=== PATIENT | female | born 1970 | race Caucasian/White ===

== ENCOUNTER 2021-02-24 14:21 | Inpatient (IN) | payer MEDICARE ==
[~2021-02-24] VITALS: Ht 157.5 cm; Wt 142.3 kg
[~2021-02-24 14:21] MED LIST: ALBU2.5V8; ALPR1TAB6; ASPI-482 PO; ATOR40TA59; BUPR100T11; FLUC150T2; FLUT1DIS; GLIM2TAB7; LEVO1TBD5; LEVO200T5; MELO15TA23; METF10007; METH-562; OMEG1CAP27 PO; OXYB5TAB10; OXYC10TA; PANT40TA77; PARO40TA3; [UNRECOGNIZED DRUG - CODE]
--- NOTE | 2021-02-24 14:42 | PHYS DOC ---
Past Medical History Past Medical History: Anxiety, Asthma, Depression, Diabetes-Type II, Hype rthyroid Additional Past Medical Histor: OVER ACTIVEBLADDER,CP Past Surgical History: Other Additional Past Surgical Histo: UNKNOWN Smoking Status: Never Smoker Alcohol Use: None Drug Use: None General Adult EDM: Chief Complaint: HIP PAIN HPI: HPI: Patient is a 50 year old female with history of cerebral palsy, HTN, DM who presents with a mechanical fall. She has right-sided weakness from her CP, and was trying to transfer from her bed to a chair when she fell onto her left knee. She felt a pop and pain immediately in her left hip. Denies head strike, LOC. No headache or confusion following the fall. Denies any neck pain or upper extremity pain, tingling, or weakness. Denies any other areas of pain. Received 75 mcg of intranasal fentanyl, followed by 50 mcg of IV fentanyl prior to arrival. Leg was noted by EMS to be shortened and externally rotated. Last p.o. intake was approximately 1 PM. Fall was approximately 1:30 PM. Review of Systems: Review of Systems: Constitutional: Denies fever or chills. [] Eyes: Denies change in visual acuity. [] HENT: Denies nasal congestion or sore throat. [] Respiratory: Denies cough or shortness of breath. [] Cardiovascular: Denies chest pain or edema. [] GI: Denies abdominal pain, nausea, vomiting, bloody stools or diarrhea. [] : Denies dysuria. [] Musculoskeletal: Reports left hip pain. Denies back pain or joint pain. [] Integument: Denies rash. [] Neurologic: Denies headache, focal weakness or sensory changes. [] Endocrine: Denies polyuria or polydipsia. [] Lymphatic: Denies swollen glands. [] Psychiatric: Denies depression or anxiety. [] Heart Score: C/O Chest Pain: No Risk Factors: Risk Factors: DM, Current or recent (<one month) smoker, HTN, HLP, family history of CAD, obesity. Risk Scores: Score 0 - 3: 2.5% MACE over next 6 weeks - Discharge Home Score 4 - 6: 20.3% MACE over next 6 weeks - Admit for Clinical Observation Score 7 - 10: 72.7% MACE over next 6 weeks - Early Invasive Strategies Current Medications: Current Medications Medications (Trade) Dose Ordered Sig/Amalia Start Time Stop Time Status Last Admin Dose Admin Morphine Sulfate (Morphine Sulfate) 4 mg 1X ONCE 02/24/21 14:45 02/24/21 14:46 UNV Allergies: Allergies: Allergies Coded Allergies Type Severity Reaction Last Updated Verified Beta-Blockers (Beta-Adrenergic Bloc Allergy Intermediate 12/03/14 No Sulfa (Sulfonamide Antibiotics) Allergy Intermediate 12/02/14 No carbamazepine Allergy Intermediate 12/02/14 No pramoxine Allergy Intermediate 12/02/14 No Physical Exam: PE: Constitutional: Well developed, well nourished, no acute distress, non-toxic appearance. [] HENT: Normocephalic, atraumatic, bilateral external ears normal, oropharynx moist, no oral exudates, nose normal. [] Eyes: Conjunctiva normal, no discharge. [] Neck: Normal range of motion, no tenderness, supple, no stridor. [] Cardiovascular:Heart rate regular rhythm, no murmur [] Lungs & Thorax: Bilateral breath sounds clear to auscultation. No chest wall tenderness. [] Abdomen: Obese abdomen. Nontender. [] Skin: Warm, dry, no erythema, no rash. [] Back: No tenderness, no CVA tenderness. [] Extremities: Left hip tenderness over the greater trochanter. Leg is shortened and externally rotated. No evidence of open fracture. DP pulses 2+ bilaterally. Neurologic: Alert and oriented X 3, baseline right-sided weakness normal sensory function, Psychologic: Affect normal, judgement normal, mood normal. [] EKG: EKG: Sinus rhythm. Rate 79. Normal axis. No acute ischemic changes peer [] Radiology/Procedures: Radiology/Procedures: [] Impression: [facility] [address] [place], [place] [id number] IMAGING REPORT Signed PATIENT: TAIWO CERVANTES LACCOUNT: [id number] : 1970 LOCATION: ER AGE: 50 SEX: F EXAM STATUS: REG ER ORD. PHYSICIAN: REJI CHONG MD REASON: FEMUR LEFT PT FELL TRANSFERRING FROM WHEELCHAIR PROCEDURE: HIP LEFT 2V WITH PELVIS XR FEMUR_LEFT, XR BILATERAL HIP (WITH OR WITHOUT PELVIS) LEFT 2 VIEWS History: Left femur pain. Fall. Comparison: None. Technique: AP pelvis. 2 views of the left hip. 4 views the left femur. Findings: Acute intertrochanteric fracture of the left proximal femur with suspected rotational displacement. Femoral acetabular joint remains normally located. Degenerative changes of the bilateral hips. Soft tissue edema at the left hip. Mild degenerative changes of left knee. Moderate left knee effusion. Impression: 1. Acute intertrochanteric fracture of the left hip. 2. Moderate left knee effusion. Electronically signed by: Bryn Daniel MD (02/24/2021 3:48 PM) [id number] DICTATED and SIGNED BY: BRYN DANIEL MD DATE: 02/24/21 [id number] Course & Med Decision Making: Course & Med Decision Making Pertinent Labs and Imaging studies reviewed. (See chart for details) Patient a 50-year-old female with history of cerebral palsy with right-sided weakness who presents with a fall while transferring. Complains of left-sided hip pain. There is evidence of shortening and external rotation on exam. No head or neck injury evident. No blood thinners. Primary/secondary exam pertinent only for left hip findings. We will obtain plain films, basic labs, EKG, Covid for operative planning. Last p.o. approximately 1 PM. 1442 Intertrochanteric hip fracture seen on x-ray. We will discuss admission with orthopedics and hospitalist. 1554 Peggy Disclaimer: Peggy Disclaimer: This electronic medical record was generated, in whole or in part, using a voice recognition dictation system. Departure Departure Impression: Primary Impression: Closed left hip fracture Disposition: ADMITTED INPATIENT Admitting Physician: UZIEL Vickers) Condition: STABLE Referrals: LENARD DOW MD (PCP) REJI CHONG MD Feb 24, 2021 14:42
[2021-02-24] MEDS ORDERED: MORPHINE SULFATE 4 MG/ML INJ. IVP ONE (14:45)
[2021-02-24 14:54] LABS: BASO # 0.1 x10^3/uL (0.0-0.2); BASO % 1 % (0-3); EOS # 0.2 x10^3/uL (0.0-0.7); EOS % 2 % (0-3); HEMATOCRIT 35.2 % (36.0-47.0); HEMOGLOBIN 11.5 g/dL (12.0-15.5); LYMPH # 2.8 x10^3/uL (1.0-4.8); LYMPH % 27 % (24-48); MEAN CORPUSCULAR HEMOGLOBIN 27 pg (25-35); MEAN CORPUSCULAR HGB CONC 33 g/dL (31-37); MEAN CORPUSCULAR VOLUME 84 fL (79-100); MONO # 0.5 x10^3/uL (0.0-1.1); MONO % 5 % (0-9); NEUT # 6.6 x10^3/uL (1.8-7.7); NEUT % 65 % (31-73); PLATELET COUNT 358 x10^3/uL (140-400); RED BLOOD COUNT 4.22 x10^6/uL (3.50-5.40); RED CELL DISTRIBUTION WIDTH 18.3 % (11.5-14.5); WHITE BLOOD COUNT 10.2 x10^3/uL (4.0-11.0)
[2021-02-24 14:56] LABS: CALCIUM 9.1 mg/dL (8.5-10.1); CREATININE 0.6 mg/dL (0.6-1.0); GFR 105.4; POTASSIUM 3.7 mmol/L (3.5-5.1)
--- NOTE | 2021-02-24 15:47 | EKG ---
[facility] [address] [place] [address] Test Date: 2021-02-24 Test Time: 14:53:52 Pat Name: TAIWO CERVANTES Department: Room: Gender: F Assistant Branch Operations Manager: : 1970 Requested By: REJI CHONG Order Number: [id number] Reading MD: Measurements Intervals [place] Rate: 79 P: 0 NM: 196 QRS: 24 QRSD: 84 T: 28 QT: 390 QTc: 448 Interpretive Statements SINUS RHYTHM OTHERWISE NORMAL ECG RI6.02 No previous ECG available for comparison
--- NOTE | 2021-02-24 15:51 | RAD ---
XR FEMUR_LEFT, XR BILATERAL HIP (WITH OR WITHOUT PELVIS) LEFT 2 VIEWS History: Left femur pain. Fall. Comparison: None. Technique: AP pelvis. 2 views of the left hip. 4 views the left femur. Findings: Acute intertrochanteric fracture of the left proximal femur with suspected rotational displacement. F emoral acetabular joint remains normally located. Degenerative changes of the bilateral hips. Soft ti ssue edema at the left hip. Mild degenerative changes of left knee. Moderate left knee effusion. Impression: 1. Acute intertrochanteric fracture of the left hip. 2. Moderate left knee effusion. Electronically signed by: Bryn Huff MD (02/24/2021 3:48 PM) [id number]
[2021-02-24] MEDS: MORPHINE SULFATE 4 MG/ML INJ. IVP PRN ×4 (17:23→23:52)
[2021-02-24 19:10] VITALS: BP 141/97
--- NOTE | 2021-02-24 20:18 | NUR ---
Patient admitted in ER Hold with diagnosis of Patient admitted in ER Holding. Admitting diagnosis: Left hip fracture. Patient states she fell today trying to get into her wheelchair. Patient is alert and oriented x 4. Patient has cerebral palsy and uses a wheelchair. X-rays confirmed fracture. Surgery is scheduled for 02/25/21. Patient is moderate amount of pain with movement. Will continue to monitor.
[2021-02-24] MEDS ORDERED: ALBU2.5V8 IH (20:51)
[2021-02-24] MEDS ORDERED: METH-561 PO (20:51)
--- NOTE | 2021-02-24 21:34 | PDOC ---
PROGRESS NOTES Date of Service DATE: 02/24/21 TIME: 21:32 Subjective Subjective Problems overnight: Orthopedic consult dictated 02/24/2021 #[id number] Objective Vital Signs Vital Signs Date Time Temp Pulse Resp B/P (MAP) Pulse Ox O2 Delivery O2 Flow Rate FiO2 02/24/21 20:15 18 Room Air 02/24/21 17:27 86 126/81 (96) 94 02/24/21 14:25 98.6 98.6 Labs Laboratory Tests Test 02/24/21 14:35 02/24/21 14:56 White Blood Count 10.2 x10^3/uL (4.0-11.0) Red Blood Count 4.22 x10^6/uL (3.50-5.40) Hemoglobin 11.5 g/dL (12.0-15.5) Hematocrit 35.2 % (36.0-47.0) Mean Corpuscular Volume 84 fL (79-100) Mean Corpuscular Hemoglobin 27 pg (25-35) Mean Corpuscular Hemoglobin Concent 33 g/dL (31-37) Red Cell Distribution Width 18.3 % (11.5-14.5) Platelet Count 358 x10^3/uL (140-400) Neutrophils (%) (Auto) 65 % (31-73) Lymphocytes (%) (Auto) 27 % (24-48) Monocytes (%) (Auto) 5 % (0-9) Eosinophils (%) (Auto) 2 % (0-3) Basophils (%) (Auto) 1 % (0-3) Neutrophils # (Auto) 6.6 x10^3/uL (1.8-7.7) Lymphocytes # (Auto) 2.8 x10^3/uL (1.0-4.8) Monocytes # (Auto) 0.5 x10^3/uL (0.0-1.1) Eosinophils # (Auto) 0.2 x10^3/uL (0.0-0.7) Basophils # (Auto) 0.1 x10^3/uL (0.0-0.2) Sodium Level 142 mmol/L (136-145) Potassium Level 3.7 mmol/L (3.5-5.1) Chloride Level 104 mmol/L (98-107) Carbon Dioxide Level 28 mmol/L (21-32) Anion Gap 10 (6-14) Blood Urea Nitrogen 15 mg/dL (7-20) Creatinine 0.6 mg/dL (0.6-1.0) Estimated GFR (Cockcroft-Gault) 105.4 Glucose Level 147 mg/dL (70-99) Calcium Level 9.1 mg/dL (8.5-10.1) SARS-CoV-2 Antigen (Rapid) Negative (NEGATIVE) Laboratory Tests Test 02/24/21 14:35 02/24/21 14:56 White Blood Count 10.2 x10^3/uL (4.0-11.0) Red Blood Count 4.22 x10^6/uL (3.50-5.40) Hemoglobin 11.5 g/dL (12.0-15.5) Hematocrit 35.2 % (36.0-47.0) Mean Corpuscular Volume 84 fL (79-100) Mean Corpuscular Hemoglobin 27 pg (25-35) Mean Corpuscular Hemoglobin Concent 33 g/dL (31-37) Red Cell Distribution Width 18.3 % (11.5-14.5) Platelet Count 358 x10^3/uL (140-400) Neutrophils (%) (Auto) 65 % (31-73) Lymphocytes (%) (Auto) 27 % (24-48) Monocytes (%) (Auto) 5 % (0-9) Eosinophils (%) (Auto) 2 % (0-3) Basophils (%) (Auto) 1 % (0-3) Neutrophils # (Auto) 6.6 x10^3/uL (1.8-7.7) Lymphocytes # (Auto) 2.8 x10^3/uL (1.0-4.8) Monocytes # (Auto) 0.5 x10^3/uL (0.0-1.1) Eosinophils # (Auto) 0.2 x10^3/uL (0.0-0.7) Basophils # (Auto) 0.1 x10^3/uL (0.0-0.2) Sodium Level 142 mmol/L (136-145) Potassium Level 3.7 mmol/L (3.5-5.1) Chloride Level 104 mmol/L (98-107) Carbon Dioxide Level 28 mmol/L (21-32) Anion Gap 10 (6-14) Blood Urea Nitrogen 15 mg/dL (7-20) Creatinine 0.6 mg/dL (0.6-1.0) Estimated GFR (Cockcroft-Gault) 105.4 Glucose Level 147 mg/dL (70-99) Calcium Level 9.1 mg/dL (8.5-10.1) SARS-CoV-2 Antigen (Rapid) Negative (NEGATIVE) Assessment Assessment POD# Plan Plan of Care Plan ORIF of left intertrochanteric hip fracture tomorrow following hospitalist evaluation Justicifation of Admission Dx: Justifications for Admission: Justification of Admission Dx: N/A NORBERTO FUENTES MD Feb 24, 2021 21:34
[2021-02-24] MEDS ORDERED: ALPR1TAB2 PO (21:39)
[2021-02-24] MEDS ORDERED: CARV6.2511 PO (21:39)
[2021-02-24] MEDS ORDERED: RIZA10TA PO (21:39)
[2021-02-24] MEDS ORDERED: OXYB5TAB10 PO (21:39)
[2021-02-24] MEDS ORDERED: BUPR100T8 PO (21:39)
[2021-02-24] MEDS ORDERED: NYST15CR TP (21:39)
[2021-02-24] MEDS ORDERED: NYST15PO9 TP (21:39)
[2021-02-24] MEDS ORDERED: ROPI2TAB10 PO (21:39)
[2021-02-24] MEDS ORDERED: PANT20TA2 PO (21:39)
[2021-02-24] MEDS ORDERED: GLIM4TAB8 PO (21:39)
[2021-02-24] MEDS ORDERED: PIOG30TA41 PO (21:39)
[2021-02-24] MEDS ORDERED: METF10007 PO ×2 (21:39)
[2021-02-24] MEDS ORDERED: PARO40TA3 PO (21:39)
[2021-02-24] MEDS ORDERED: MELO15TA23 PO (21:39)
[2021-02-24] MEDS ORDERED: ATOR40TA59 PO (21:39)
[2021-02-24] MEDS ORDERED: DILT240C33 PO (21:39)
[2021-02-24] MEDS ORDERED: LEVO125T5 PO (21:39)
[2021-02-24 23:00] VITALS: BP 140/95
[2021-02-25] VITALS (10 sets, daily range): BP systolic 118–150; BP diastolic 76–96
[2021-02-25] MEDS: MORPHINE SULFATE 4 MG/ML INJ. IVP PRN ×5 (02:12→11:43)
--- NOTE | 2021-02-25 06:05 | CONS ---
DATE OF CONSULTATION: 02/24/2021 EMERGENCY DEPARTMENT CONSULTATION REQUESTING PHYSICIAN: [facility]. REASON FOR CONSULTATION: Left hip fracture. HISTORY OF PRESENT ILLNESS: The patient is a 50-year-old female who has a history of cerebral palsy and chronic right-sided weakness that normally transfers to a wheelchair using her left leg to bear the majority of her weight due to the baseline weakness and unfortunately sustained a fall when she was trying to transfer from bed to chair and fell on her left side. She had immediate onset of pain in the left hip area, inability to bear weight and was brought in by EMS to [facility]. PAST MEDICAL HISTORY: Significant for cerebral palsy, type 2 diabetes, asthma, hyperthyroidism, anxiety, depression and bladder problems. PAST SURGICAL HISTORY: No surgical history. SOCIAL HISTORY: She has an aunt who is her only living relative. She does, however have help transferring and a service dog. Denies smoking, alcohol or drug use. MEDICATIONS: List is reviewed. ALLERGIES: SHE LISTS ALLERGIES TO SULFA DRUGS, CARBAMAZEPINE, PRAMOXINE AND BETA BLOCKERS. REVIEW OF SYSTEMS: Denies any loss of consciousness, head injury, visual changes and aside from her baseline right-sided weakness due to her CP, no new focal weakness, numbness or tingling. No neck or back pain. No chest pain, shortness of breath. PHYSICAL EXAMINATION: She has obvious deformity, shortening, internal rotation of the left lower extremity, pain on any motion at all of the left hip or palpation. Normal examination of the right hip. Normal alignment, stability, bilateral knees and ankles. Again, baseline right-sided weakness. DIAGNOSTIC DATA: X-rays show a displaced intertrochanteric left hip fracture with no degenerative changes at the hip. IMPRESSION: Left intertrochanteric hip fracture. TREATMENT PLAN: I went over with her the significance of the fracture and the recommended operative treatment and stabilization, particularly as she is very dependent on the left side due to her right-sided weakness. We did talk about the possibility of limited weightbearing until healing and showing the possibility of infection, nonhealing, nerve or blood vessel damage, medical or other anesthetic complications among others. All her questions were answered. She does want to proceed with surgical evaluation and treatment, which will occur likely tomorrow following hospitalist evaluation and admission. TINO/BERTO/KIMANI DR: Rashi TID: [id number]
--- NOTE | 2021-02-25 09:28 | HP ---
ADMIT DATE: 02/25/2021 CHIEF COMPLAINT: Fall and hip pain. HISTORY OF PRESENT ILLNESS: The patient is a pleasant 50-year-old female who has cerebral palsy. She fell. She complains of hip pain. She presented via ambulance. We did some imaging. She does have a left intertrochanteric femur fracture. Discussed the case with ER physician. We are going to admit the patient and consult Orthopedics. She is going to surgery this morning. PAST MEDICAL HISTORY: Cerebral palsy, asthma, anxiety, depression, diabetes, hyperthyroidism, overactive bladder. ALLERGIES: BETA BLOCKERS, SULFA, CARBAMAZEPINE. FAMILY HISTORY: Diabetes. SOCIAL HISTORY: She does not drink, smoke or take drugs. MEDICATIONS: Reviewed. Please refer to the MRAD. REVIEW OF SYSTEMS: GENERAL: No history of weight change, weakness or fevers. SKIN: No bruising, hair changes or rashes. EYES: No blurred, double or loss of vision. NOSE AND THROAT: No history of nosebleeds, hoarseness or sore throat. HEART: No history of palpitations, chest pain or shortness of breath on exertion. LUNGS: Denies cough, hemoptysis, wheezing or shortness of breath. GASTROINTESTINAL: Denies changes in appetite, nausea, vomiting, diarrhea or constipation. GENITOURINARY: No history of frequency, urgency, hesitancy or nocturia. NEUROLOGIC: Denies history of numbness, tingling, tremor or weakness. PSYCHIATRIC: No history of panic, anxiety or depression. ENDOCRINE: No history of heat or cold intolerance, polyuria or polydipsia. EXTREMITIES: She complains of left hip pain. PHYSICAL EXAMINATION: VITALS: Within normal limits and are stable. GENERAL: No apparent distress. alert and oriented. HEENT: Normal cephalic atraumatic, external auditory canals are patent. EYES: Extraocular muscles are intact, pupils are equally round and reactive to light and accommodation. MUSCULOSKELETAL: Well developed, well nourished, good range of motion. ENDOCRINE: No thyromegaly was palpated. LYMPHATICS: No cervical chain or axillary nodes were noted. HEMATOPOIETIC: No bruising. NECK: Supple, no JVD, no thyromegaly was noted. LUNGS: Clear to auscultation in all lung chang without rhonchi or wheezing. HEART: RRR, S1, S2 present. Peripheral pulses intact, no obvious murmurs were noted. ABDOMEN: Soft, nontender. Positive bowel sounds no organomegaly, normal bowel sounds. EXTREMITIES: The left hip is externally rotated. She does have 1+ edema. NEUROLOGIC: Normal speech, normal tone. A and O x 3, moves all extremities, no obvious focal deficits. PSYCHIATRIC: Normal affect, normal mood. Stable. SKIN: No ulcerations or rashes, good skin turgor, no jaundice. VASCULAR: Good capillary refill, neurovascular bundle appears to be intact. IMAGING DATA: Left hip film shows an acute intertrochanteric hip fracture. ASSESSMENT AND PLAN: Fall with hip fracture. The patient has been admitted. We are consulting Orthopedics. She is going to surgery today. Postoperatively, she is going to need wound care, physical therapy, occupational therapy, p.r.n. pain meds. Suspect she might need to go to long-term. Long-term prognosis is guarded. MARK/JOSE/ABIGAIL DR: Hattie TID: [id number]
[2021-02-25] MEDS ORDERED: HYDROmorphone 2 MG/ML VIAL IVP PRN (09:45)
[2021-02-25] MEDS ORDERED: PROCHLORPERAZINE 10 MG/2 ML VIAL. IVP PRN (09:45)
[2021-02-25] MEDS ORDERED: fentaNYL PF VIAL 100 MCG/2 ML VIAL IVP PRN (09:45)
[2021-02-25] MEDS ORDERED: MORPHINE SULFATE 2 MG/ML INJ. IVP PRN (09:45)
[2021-02-25] MEDS ORDERED: IV RINGERS,LACTATED 1000ML 1,000 ML IV SCH (09:45)
--- NOTE | 2021-02-25 12:13 | NUR ---
assumed care at 1130 and was transferred to surgery at 1200. oriented to room . purewick was placed to suction. transferred to surgery per bed. [id number] ordered for patients size
[2021-02-25] MEDS ORDERED: ALBUTEROL SULFATE 2.5 MG/3 ML NEBU. ONE (12:15)
[2021-02-25] MEDS ORDERED: ALBU2.5V8 IH (12:21)
[2021-02-25] MEDS ORDERED: ceFAZolin SODIUM 3 GM in IV DEXTROSE 5% 100ML 100 ML IV PRN (13:00)
[2021-02-25] MEDS ORDERED: SCOPOLAMINE 1.5MG PATCH. TD ONE (13:06)
[2021-02-25] MEDS: ALBUTEROL SULFATE 2.5 MG/3 ML NEBU. NEB PRN ×4 (13:30→17:36)
[2021-02-25] MEDS ORDERED: PHENYLEPHRINE in 0.9% NACL PF 1 MG/10 ML SYRINGE. IV ONE (14:23)
[2021-02-25] MEDS ORDERED: HYDROmorphone 2 MG/ML VIAL ONE (14:44)
[2021-02-25] MEDS ORDERED: DEXAMETHASONE SOD PHOS 4 MG/ML VIAL ONE (14:49)
[2021-02-25] MEDS ORDERED: ONDANSETRON PF 4 MG/2 ML VIAL. ONE (14:49)
[2021-02-25] MEDS ORDERED: SEVOFLURANE 31 TO 60 MINUTES. IH ONE (14:49)
[2021-02-25] MEDS ORDERED: fentaNYL PF VIAL 100 MCG/2 ML VIAL ONE (15:43)
[2021-02-25] MEDS: fentaNYL PF VIAL 100 MCG/2 ML VIAL IVP PRN ×4 (15:46→23:37)
--- NOTE | 2021-02-25 15:55 | NUR ---
wound care patient off unit at this time, wound care will f/u tomorrow 02/26/2021
[2021-02-25] MEDS ORDERED: NYSTATIN 100,000 UNIT/GM TOPICAL CREAM 15GM TUBE. TP PRN (16:00)
[2021-02-25] MEDS: PANTOPRAZOLE 40 MG TABLET.DR. PO SCH (16:30)
[2021-02-25] MEDS ORDERED: ALBUTEROL SULFATE 2.5 MG/3 ML NEBU. NEB PRN (17:15)
[2021-02-25] MEDS ORDERED: METH-561 PO (17:19)
[2021-02-25] MEDS: GLIMEPIRIDE 2 MG TABLET. PO SCH (17:27)
[2021-02-25] MEDS: MELOXICAM 7.5 MG TABLET PO SCH (17:27)
[2021-02-25] MEDS: CARVEDILOL 3.125 MG TABLET. PO SCH (17:29)
[2021-02-25] MEDS: METHOCARBAMOL 500 MG TABLET PO PRN ×2 (17:29→23:40)
[2021-02-25] MEDS: metFORMIN 500 MG TABLET PO SCH (17:29)
--- NOTE | 2021-02-25 17:53 | PDOC4 ---
Operative Note Operative Note Date of surgery: 02/25/2021 Preoperative diagnosis: Displaced left intertrochanteric hip fracture with lower extremity contractures due to cerebral palsy Postoperative diagnosis: Same with irreducible left intertrochanteric hip fracture with available fracture table and traction equipment Surgeon: Duong Anesthesia: General Estimated blood loss: None Complications: None Operative indications: Please see my dictated orthopedic consultation for detailed operative indications of planned fixation of her left intertrochanteric hip fracture. We had discussed risk benefits postoperative course of the procedure and the rationale for operative treatment to attempt to minimize immobility related complications and mal reduction with nonoperative treatment. All her questions were answered and she agrees to proceed with surgical evaluation and treatment Operative text: Patient was identified procedure verified patient was placed in the supine position on the Zamora fracture table after adequate amounts of general anesthesia were administered. The left lower extremity was placed in a well- padded traction boot and the well-leg was positioned in the well-leg krishna. She was noted to have significant flexion contractures at the hip. Usual methods of attempting reduction to allow intramedullary fixation of the fracture were carried out on the fracture table. Traction was attempted in line with the flexion contracture to attempt to better align the reduction. However despite multiple attempts at repositioning under fluoroscopic guidance and application of enough traction to slightly widen the joint space, adequate reduction was not achieved to allow starting the procedure for intramedullary fixation. As our particular hospital facility does not have an alternate fracture table to allow potential positioning the body in a lateral position allowing alternative traction and positioning of the left lower extremity to obtain an adequate reduction, I elected to abandon the procedure as we do not have an ability with existing equipment to apply traction in the required planes of motion to safely and successfully accomplish the required surgical procedure. I spoke with the patient and her aunt about the inability to proceed with the surgery as planned and began contacting alternate facilities for potential treatment and transfer NORBERTO FUENTES MD Feb 25, 2021 17:53
--- NOTE | 2021-02-25 19:19 | NUR ---
Dr. Watters called at 191 in regards to possible transfer for hip sx to be done d/t fx table not allowing for correct positioning . [facility] can take. Dr. Watters would like to send this evening, he was given number to contact building construction supervisor in regards to transferring.
--- NOTE | 2021-02-25 19:39 | PDOC ---
PROGRESS NOTES Date of Service DATE: 02/25/21 TIME: 19:36 Subjective Subjective Problems overnight: I spoke this evening with [facility] orthopedic department Dr. Israel who is a resident as well as the transfer center and explained her condition about the lack of ability to reduce her fracture and the need for other traction apparatus in the operating room. Orthopedic department agreed to accept her transfer and stated that the hospitalist physician would need to do the admission itself and the DOC, I assume equivalent to a nursing mixing and dispensing supervisor stated that they would take the patient but were unable to do so until tomorrow morning due to the arrangements with the hospitalist. I informed the nursing mixing and dispensing supervisor Irina and gave her all the requisite information contact information for the records to be faxed etc. Objective Vital Signs Vital Signs Date Time Temp Pulse Resp B/P (MAP) Pulse Ox O2 Delivery O2 Flow Rate FiO2 02/25/21 18:00 110 20 134/84 (101) 94 Nasal Cannula 2.0 02/25/21 16:00 98.5 98.5 Labs Laboratory Tests Test 02/24/21 14:35 02/24/21 14:56 02/25/21 12:51 White Blood Count 10.2 x10^3/uL (4.0-11.0) Red Blood Count 4.22 x10^6/uL (3.50-5.40) Hemoglobin 11.5 g/dL (12.0-15.5) Hematocrit 35.2 % (36.0-47.0) Mean Corpuscular Volume 84 fL (79-100) Mean Corpuscular Hemoglobin 27 pg (25-35) Mean Corpuscular Hemoglobin Concent 33 g/dL (31-37) Red Cell Distribution Width 18.3 % (11.5-14.5) Platelet Count 358 x10^3/uL (140-400) Neutrophils (%) (Auto) 65 % (31-73) Lymphocytes (%) (Auto) 27 % (24-48) Monocytes (%) (Auto) 5 % (0-9) Eosinophils (%) (Auto) 2 % (0-3) Basophils (%) (Auto) 1 % (0-3) Neutrophils # (Auto) 6.6 x10^3/uL (1.8-7.7) Lymphocytes # (Auto) 2.8 x10^3/uL (1.0-4.8) Monocytes # (Auto) 0.5 x10^3/uL (0.0-1.1) Eosinophils # (Auto) 0.2 x10^3/uL (0.0-0.7) Basophils # (Auto) 0.1 x10^3/uL (0.0-0.2) Sodium Level 142 mmol/L (136-145) Potassium Level 3.7 mmol/L (3.5-5.1) Chloride Level 104 mmol/L (98-107) Carbon Dioxide Level 28 mmol/L (21-32) Anion Gap 10 (6-14) Blood Urea Nitrogen 15 mg/dL (7-20) Creatinine 0.6 mg/dL (0.6-1.0) Estimated GFR (Cockcroft-Gault) 105.4 Glucose Level 147 mg/dL (70-99) Calcium Level 9.1 mg/dL (8.5-10.1) SARS-CoV-2 RNA (JENNIFER) Negative (Negative) SARS-CoV-2 Antigen (Rapid) Negative (NEGATIVE) Glucose (Fingerstick) 130 mg/dL (70-99) Laboratory Tests Test 02/25/21 12:51 Glucose (Fingerstick) 130 mg/dL (70-99) Assessment Assessment POD# Justicifation of Admission Dx: Justifications for Admission: Justification of Admission Dx: N/A NORBERTO FUENTES MD Feb 25, 2021 19:39
[2021-02-25] MEDS ORDERED: ATORVASTATIN CALCIUM 40 MG TABLET. PO SCH (21:00)
[2021-02-25] MEDS ORDERED: ALPRAZolam 1 MG TABLET PO SCH (21:00)
[2021-02-25] MEDS ORDERED: rOPINIRole 1 MG TABLET. PO SCH (21:00)
[2021-02-25] MEDS: NYSTATIN TOPICAL POWDER 15GM BOTTLE. TP SCH (21:27)
[2021-02-26 03:00] VITALS: BP 114/82
[2021-02-26] MEDS: fentaNYL PF VIAL 100 MCG/2 ML VIAL IVP PRN ×5 (03:18→16:40)
[2021-02-26 07:00] VITALS: BP 88/54
[2021-02-26] MEDS ORDERED: LEVOTHYROXINE 125 MCG TABLET PO SCH (07:00)
[2021-02-26] MEDS ORDERED: buPROPion SR 100 MG TABLET.SA. PO SCH (08:00)
[2021-02-26] MEDS ORDERED: metFORMIN 500 MG TABLET PO SCH (08:00)
[2021-02-26] MEDS: METHOCARBAMOL 500 MG TABLET PO PRN (08:51)
[2021-02-26] MEDS: metFORMIN 500 MG TABLET PO SCH (08:51)
[2021-02-26] MEDS: MELOXICAM 7.5 MG TABLET PO SCH (08:56)
[2021-02-26] MEDS: PANTOPRAZOLE 40 MG TABLET.DR. PO SCH ×2 (08:57→16:30)
[2021-02-26] MEDS: GLIMEPIRIDE 2 MG TABLET. PO SCH (08:57)
[2021-02-26] MEDS: CARVEDILOL 3.125 MG TABLET. PO SCH (08:58)
[2021-02-26] MEDS ORDERED: OXYBUTYNIN CHLORIDE 5 MG TABLET PO SCH (09:00)
[2021-02-26] MEDS ORDERED: PIOGLITAZONE 15 MG TABLET. PO SCH (09:00)
[2021-02-26] MEDS: NYSTATIN TOPICAL POWDER 15GM BOTTLE. TP SCH (09:00)
[2021-02-26] MEDS: ALBUTEROL SULFATE 2.5 MG/3 ML NEBU. NEB PRN (09:00)
[2021-02-26] MEDS ORDERED: PARoxetine 20 MG TABLET PO SCH (09:00)
[2021-02-26] MEDS ORDERED: IPRATRPIUM/ALBUTEROL 0.5/2.5MG 3 ML NEBU. NEB SCH (10:00)
--- NOTE | 2021-02-26 10:20 | NUR ---
SW following. Discussed with RN, TRACY spoke with [facility] - pt is accepted pending a bed. No bed as of yet. SW will continue to follow.
[2021-02-26] MEDS ORDERED: fentaNYL PF VIAL 100 MCG/2 ML VIAL IVP PRN (10:30)
[2021-02-26 11:00] VITALS: BP 124/68
--- NOTE | 2021-02-26 11:21 | PDOC ---
[facility] PROGRESS NOTE Date of Service DOS: DATE: 02/26/21 TIME: 11:18 History of Present Illness History of Present Illness The patient is a pleasant 50-year-old female who has cerebral palsy. She fell. She complains of hip pain. She presented via ambulance. We did some imaging. She does have a left intertrochanteric femur fracture. Discussed the case with ER physician. We are going to admit the patient and consult Orthopedics. She is going to surgery this morning. 02/26 Patient evaluated at bedside this morning. Complaining of some shortness of breath and pain with inspiration. Will order chest x-ray, lab work relatively unremarkable. Still planning for transfer to [place] for surgical intervention. Patient has been accepted but is waiting a bed. Vitals/I&O Vitals/I&O: Vital Signs Date Time Temp Pulse Resp B/P (MAP) Pulse Ox O2 Delivery O2 Flow Rate FiO2 02/26/21 11:00 98.3 84 18 124/68 (86) 91 Room Air 98.3 02/26/21 09:27 2.0 I & O 02/25/21 02/25/21 02/26/21 15:00 23:00 07:00 Intake Total 1175 ml Output Total 0 ml 200 ml 1450 ml Balance 0 ml 975 ml -1450 ml Physical Exam General: Alert, Oriented X3, Cooperative Heart: Regular rate, Normal S1, Normal S2 Lungs: Clear Abdomen: Normal bowel sounds, Soft, No tenderness Extremities: No edema, Normal pulses Skin: No significant lesion Labs Labs: Laboratory Tests Test 02/25/21 12:51 02/26/21 09:35 Glucose (Fingerstick) 130 mg/dL (70-99) 145 mg/dL (70-99) Assessment and Plan Assessmemt and Plan Problems Medical Problems: (1) Closed left hip fracture Status: Acute Fall with hip fracture. Orthopedics consulted --> patient needs to be transferred for surgical intervention. Fracture table here not compatible Has been accepted at [facility] awaiting a bed though. With new shortness of breath pain with inspiration will consult pulmonary; chest x-ray ordered PT OT . Comment Review of Relevant I have reviewed the following items leona (where applicable) has been applied. Medications: Current Medications Medications (Trade) Dose Ordered Sig/Amalia Route PRN Reason Start Time Stop Time Status Last Admin Dose Admin Cefazolin Sodium 3 gm/Dextrose 100 ml @ 200 mls/hr 1X PREOP PRN IV PRIOR TO PROCEDURE 02/25/21 13:00 02/26/21 12:59 02/25/21 14:10 Albuterol Sulfate (Ventolin Neb Soln) 2.5 mg PACU PRN PRN NEB CONGESTION 02/25/21 14:30 02/26/21 09:00 Alprazolam (Xanax) 1 mg HS PO 02/25/21 21:00 02/25/21 21:27 Atorvastatin Calcium (Lipitor) 40 mg QHS PO 02/25/21 21:00 02/25/21 21:27 Bupropion HCl (Wellbutrin Sr) 300 mg DAILYWBKFT PO 02/26/21 08:00 02/26/21 08:56 Carvedilol (Coreg) 3.125 mg BIDWMEALS PO 02/25/21 17:00 02/26/21 08:58 Diltiazem HCl (Cardizem 24hr Cd) 240 mg DAILY PO 02/25/21 17:00 02/26/21 08:56 Levothyroxine Sodium (Synthroid) 125 mcg DAILY07 PO 02/26/21 07:00 02/26/21 08:57 Nystatin (Nystop) 1 maira BID TP 02/25/21 21:00 02/26/21 09:00 Oxybutynin Chloride (Ditropan) 5 mg DAILY PO 02/26/21 09:00 02/26/21 08:57 Glimepiride (Amaryl) 4 mg BIDWMEALS PO 02/25/21 17:00 02/26/21 08:57 Meloxicam (Mobic) 15 mg DAILY PO 02/25/21 17:20 02/26/21 08:56 Pantoprazole Sodium (Protonix) 40 mg BIDAC PO 02/25/21 16:30 02/26/21 08:57 Paroxetine HCl (Paxil) 40 mg DAILY PO 02/26/21 09:00 02/26/21 08:56 Pioglitazone HCl (Actos) 30 mg DAILY PO 02/26/21 09:00 02/26/21 08:58 Sumatriptan Succinate (Imitrex) 100 mg PRN Q2HR PRN PO MIGRAINE HEADACHE 02/25/21 16:15 02/25/21 21:27 Ropinirole HCl (Requip) 2 mg HS PO 02/25/21 21:00 02/25/21 21:27 Metformin HCl (Glucophage) 1,000 mg BIDWMEALS PO 02/25/21 18:00 02/26/21 08:51 Methocarbamol (Robaxin) 500 mg PRN Q6HRS PRN PO MUSCLE SPASMS 02/25/21 17:15 02/26/21 08:51 Justifications for Admission Other Justification RAJI FERGUSON MD Feb 26, 2021 11:21
[2021-02-26] MEDS ORDERED: METHOCARBAMOL 500 MG TABLET PO PRN (13:15)
--- NOTE | 2021-02-26 13:19 | RAD ---
Single view of the chest. 02/26/2021 12:41 PM Indication: Reason: pain with inspiration / Comparison: Chest radiograph December 02, 2014 Findings: There is no overt focal consolidation or infiltrate. No pneumothorax or pleural effusion is identified. Heart size is within normal limits. No acute osseous changes are seen. IMPRESSION: No radiographic evidence of acute cardiopulmonary process Electronically signed by: Addison Jones MD (02/26/2021 1:16 PM) [id number]
[2021-02-26 14:45] VITALS: BP 110/70
--- NOTE | 2021-02-26 15:06 | PDOC3 ---
[facility]-Discharge Summary Date of Admission: Date of Admission: Feb 24, 2021 Date of Discharge: Date of Discharge: Feb 26, 2021 Admission Diagnosis: Problems: (1) Closed left hip fracture Discharge Diagnosis: Discharge Diagnosis: Same Consults: Consults: Ortho Hospital Course: Hospital Course: Orthopedic Notes below 02/25 Problems overnight: I spoke this evening with [facility] orthopedic department Dr. Israel who is a resident as well as the transfer center and explained her condition about the lack of ability to reduce her fracture and the need for other traction apparatus in the operating room. Orthopedic department agreed to accept her transfer and stated that the hospitalist physician would need to do the admission itself and the DOC, I assume equivalent to a nursing logging crew supervisor stated that they would take the patient but were unable to do so until tomorrow morning due to the arrangements with the hospitalist. I informed the nursing logging crew supervisor Irina and gave her all the requisite information contact information for the records to be faxed etc. 02/24 HISTORY OF PRESENT ILLNESS: The patient is a 50-year-old female who has a history of cerebral palsy and chronic right-sided weakness that normally transfers to a wheelchair using her left leg to bear the majority of her weight due to the baseline weakness and unfortunately sustained a fall when she was trying to transfer from bed to chair and fell on her left side. She had immediate onset of pain in the left hip area, inability to bear weight and was brought in by EMS to [facility]. PAST MEDICAL HISTORY: Significant for cerebral palsy, type 2 diabetes, asthma, hyperthyroidism, anxiety, depression and bladder problems. PAST SURGICAL HISTORY: No surgical history. SOCIAL HISTORY: She has an aunt who is her only living relative. She does, however have help transferring and a service dog. Denies smoking, alcohol or drug use. MEDICATIONS: List is reviewed. ALLERGIES: SHE LISTS ALLERGIES TO SULFA DRUGS, CARBAMAZEPINE, PRAMOXINE AND BETA BLOCKERS. REVIEW OF SYSTEMS: Denies any loss of consciousness, head injury, visual changes and aside from her baseline right-sided weakness due to her CP, no new focal weakness, numbness or tingling. No neck or back pain. No chest pain, shortness of breath. PHYSICAL EXAMINATION: She has obvious deformity, shortening, internal rotation of the left lower extremity, pain on any motion at all of the left hip or palpation. Normal examination of the right hip. Normal alignment, stability, bilateral knees and ankles. Again, baseline right-sided weakness. DIAGNOSTIC DATA: X-rays show a displaced intertrochanteric left hip fracture with no degenerative changes at the hip. IMPRESSION: Left intertrochanteric hip fracture. TREATMENT PLAN: I went over with her the significance of the fracture and the recommended operative treatment and stabilization, particularly as she is very dependent on the left side due to her right-sided weakness. We did talk about the possibility of limited weightbearing until healing and showing the possibility of infection, nonhealing, nerve or blood vessel damage, medical or other anesthetic complications among others. All her questions were answered. She does want to proceed with surgical evaluation and treatment, which will occur likely tomorrow following hospitalist evaluation and admission Hospitalist Notes History of Present Illness The patient is a pleasant 50-year-old female who has cerebral palsy. She fell. She complains of hip pain. She presented via ambulance. We did some imaging. She does have a left intertrochanteric femur fracture. Discussed the case with ER physician. We are going to admit the patient and consult Orthopedics. She is going to surgery this morning. 02/26 Patient evaluated at bedside this morning. Complaining of some shortness of breath and pain with inspiration. Will order chest x-ray, lab work relatively unremarkable. Still planning for transfer to [place] for surgical intervention. Patient has been accepted but is waiting a bed. Disposition: Disposition/Orders: D/C to Another Facility Diet: Diet: NPO Medications: Home Meds Reported Medications Methocarbamol (METHOCARBAMOL) 500 Mg Tablet, 500 MG PO PRN Q6HRS PRN for MUSCLE SPASMS, TAB 02/25/21 Albuterol Sulfate (PROAIR HFA INHALER) 8.5 Gm Hfa.aer.ad, 2 PUFF IH PRN Q4-6HRS PRN for wheezing for 21 Days, #1 INHALER 0 Refills 02/25/21 Nystatin (NYSTATIN) 15 Gm Powder, 1 RCAH TP BID for rash for 7 Days, #1 BOTTLE 0 Refills apply to affected area(s) 02/24/21 Nystatin (NYSTATIN) 15 Gm Cream..g., 1 RACH TP TID PRN for RASH, #30 GM 02/24/21 Rizatriptan Benzoate (MAXALT) 10 Mg Tablet, 1 TAB PO PRN BID for migraines, #9 TAB 2 Refills 02/24/21 Ropinirole Hcl (ROPINIROLE HCL) 2 Mg Tablet, 2 MG PO HS for RLS, TAB 02/24/21 Diltiazem HCl (Diltiazem 24Hr Cd) 240 Mg Cap.er.24h, 1 CAP PO DAILY for SVT for 30 Days, #30 CAP 0 Refills 02/24/21 Pioglitazone Hcl (ACTOS) 30 Mg Tablet, 1 TAB PO DAILY for diabetes for 30 Days, #30 TAB 0 Refills 02/24/21 Metformin Hcl (METFORMIN HCL) 1,000 Mg Tablet, 1000 MG PO BIDWMEALS for diabetes, TAB 02/24/21 Pantoprazole Sodium (PROTONIX) 20 Mg Tablet.dr, 2 TAB PO BID for GERD, #30 TAB 02/24/21 Alprazolam (XANAX) 1 Mg Tablet, 1 TAB PO HS for anxiety, #60 TAB 02/24/21 Levothyroxine Sodium (LEVOTHYROXINE SODIUM) 125 Mcg Tablet, 1 TAB PO DAILY for hypothyroidism, #30 TAB 5 Refills 02/24/21 Glimepiride (GLIMEPIRIDE) 4 Mg Tablet, 1 TAB PO BID for diabetes, #180 TAB 1 Refill 02/24/21 Oxybutynin Chloride (OXYBUTYNIN CHLORIDE) 5 Mg Tablet, 1 TAB PO DAILY for bladder, #60 TAB 11 Refills 02/24/21 Carvedilol (CARVEDILOL ) 6.25 Mg Tablet, 6.25 MG PO DAILY for CARDIAC, TAB 02/24/21 Paroxetine Hcl (PAROXETINE HCL) 40 Mg Tablet, 1 TAB PO DAILY for antidepressant, #30 TAB 5 Refills 02/24/21 Bupropion Hcl (BUPROPION HCL SR) 100 Mg Tablet.er, 3 TAB PO DAILYWBKFT for depression, #30 TAB 1 Refill 02/24/21 Meloxicam (MELOXICAM) 15 Mg Tablet, 1 TAB PO DAILY for antiimflammatory for 30 Days, #30 TAB 0 Refills 02/24/21 Atorvastatin Calcium (ATORVASTATIN CALCIUM) 40 Mg Tablet, 1 TAB PO DAILY for high cholesterol, #30 TAB 5 Refills 02/24/21 Discontinued Reported Medications Metformin Hcl (METFORMIN HCL) 1,000 Mg Tablet, 1000 MG PO DAILYWBKFT for ANTI- DIABETIC, TAB 0 Refills 02/24/21 Metformin Hcl (METFORMIN HCL) 1,000 Mg Tablet, 1000 MG PO BIDWMEALS for diabetes, TAB 02/24/21 Methocarbamol (METHOCARBAMOL) 750 Mg Tablet, #60 12/03/14 Scheduled Alprazolam (Xanax), 1 TAB PO HS, (Reported) Atorvastatin Calcium (Atorvastatin Calcium), 1 TAB PO DAILY, (Reported) Bupropion Hcl (Bupropion Hcl Sr), 3 TAB PO DAILYWBKFT, (Reported) Carvedilol (Carvedilol ), 6.25 MG PO DAILY, (Reported) Diltiazem HCl (Diltiazem 24Hr Cd), 1 CAP PO DAILY, (Reported) Glimepiride (Glimepiride), 1 TAB PO BID, (Reported) Levothyroxine Sodium (Levothyroxine Sodium), 1 TAB PO DAILY, (Reported) Meloxicam (Meloxicam), 1 TAB PO DAILY, (Reported) Metformin Hcl (Metformin Hcl), 1,000 MG PO BIDWMEALS, (Reported) Nystatin (Nystatin), 1 RACH TP BID, (Reported) Oxybutynin Chloride (Oxybutynin Chloride), 1 TAB PO DAILY, (Reported) Pantoprazole Sodium (Protonix), 2 TAB PO BID, (Reported) Paroxetine Hcl (Paroxetine Hcl), 1 TAB PO DAILY, (Reported) Pioglitazone Hcl (Actos), 1 TAB PO DAILY, (Reported) Rizatriptan Benzoate (Maxalt), 1 TAB PO PRN BID, (Reported) Ropinirole Hcl (Ropinirole Hcl), 2 MG PO HS, (Reported) Scheduled PRN Albuterol Sulfate (Proair Hfa Inhaler), 2 PUFF IH PRN Q4-6HRS PRN for wheezing, (Reported) Methocarbamol (Methocarbamol), 500 MG PO PRN Q6HRS PRN for MUSCLE SPASMS, (Reported) Nystatin (Nystatin), 1 RACH TP TID PRN for RASH, (Reported) Discontinued Medications Metformin Hcl (Metformin Hcl), 1,000 MG PO DAILYWBKFT, (Reported) Metformin Hcl (Metformin Hcl), 1,000 MG PO BIDWMEALS, (Reported) Methocarbamol (Methocarbamol), (Reported) Discontinued Reason: Prescription changed Justicifation of Admission Dx: Justifications for Admission: Justification of Admission Dx: N/A RAJI FERGUSON MD Feb 26, 2021 15:06
--- NOTE | 2021-02-26 15:57 | NUR ---
Report called to ALEAH Adhikari at [facility] for patient pending transfer by EMS to room 408 on [address]. Called to number [phone].
--- NOTE | 2021-02-26 16:51 | NUR ---
Discharge Note: [facility] [address] Discharge instructions and discharge home medications reviewed with Other facility and a copy given. All questions have been answered and understanding verbalized. The following instructions and handouts were given: Diet, activity, medication list and instructions provided to [facility]. Peripheral IV intact. Patient discharged to [facility] with Ambulance Personnel via St[facility]
--- NOTE | 2021-02-26 17:19 | PDOC ---
PULMONARY PROGRESS NOTES DATE: 02/26/21 TIME: 17:19 Vitals Vital Signs Date Time Temp Pulse Resp B/P (MAP) Pulse Ox O2 Delivery O2 Flow Rate FiO2 02/26/21 16:40 94 Nasal Cannula 2.0 02/26/21 14:45 98.0 81 18 110/70 (83) 98.0 Lungs: Clear Labs Laboratory Tests Test 02/25/21 12:51 02/26/21 09:35 02/26/21 12:07 Glucose (Fingerstick) 130 mg/dL (70-99) 145 mg/dL (70-99) 145 mg/dL (70-99) Laboratory Tests Test 02/26/21 09:35 02/26/21 12:07 Glucose (Fingerstick) 145 mg/dL (70-99) 145 mg/dL (70-99) Medications Active Scripts Medications Dose Route/Sig Max Daily Dose Days Date Category Dose Instructions Methocarbamol 500 Mg Tablet 500 Mg PO PRN Q6HRS PRN 02/25/21 Reported Proair Hfa Inhaler (Albuterol Sulfate) 8.5 Gm Hfa.aer.ad 2 Puff IH PRN Q4-6HRS PRN 21 02/25/21 Reported Nystatin 15 Gm Powder 1 Annalise TP BID 7 02/24/21 Reported apply to affected area(s) Nystatin 15 Gm Cream..g. 1 Annalise TP TID PRN 02/24/21 Reported Maxalt (Rizatriptan Benzoate) 10 Mg Tablet 1 Tab PO PRN BID 02/24/21 Reported Ropinirole Hcl 2 Mg Tablet 2 Mg PO HS 02/24/21 Reported Diltiazem 24Hr Cd (Diltiazem HCl) 240 Mg Cap.er.24h 1 Cap PO DAILY 30 02/24/21 Reported Actos (Pioglitazone Hcl) 30 Mg Tablet 1 Tab PO DAILY 30 02/24/21 Reported Metformin Hcl 1,000 Mg Tablet 1,000 Mg PO BIDWMEALS 02/24/21 Reported Protonix (Pantoprazole Sodium) 20 Mg Tablet.dr 2 Tab PO BID 02/24/21 Reported Xanax (Alprazolam) 1 Mg Tablet 1 Tab PO HS 02/24/21 Reported Levothyroxine Sodium 125 Mcg Tablet 1 Tab PO DAILY 02/24/21 Reported Glimepiride 4 Mg Tablet 1 Tab PO BID 02/24/21 Reported Oxybutynin Chloride 5 Mg Tablet 1 Tab PO DAILY 02/24/21 Reported Carvedilol (Carvedilol) 6.25 Mg Tablet 6.25 Mg PO DAILY 02/24/21 Reported Paroxetine Hcl 40 Mg Tablet 1 Tab PO DAILY 02/24/21 Reported Bupropion Hcl Sr (Bupropion Hcl) 100 Mg Tablet.er 3 Tab PO DAILYWBKFT 02/24/21 Reported Meloxicam 15 Mg Tablet 1 Tab PO DAILY 30 02/24/21 Reported Atorvastatin Calcium 40 Mg Tablet 1 Tab PO DAILY 02/24/21 Reported Impression . Full consult dictated, hypoxemia related to poor inspiratory effort Asthma appears to be Compass JEFFERSON LANIER MD Feb 26, 2021 17:19
--- NOTE | 2021-02-26 21:08 | CONS ---
DATE OF CONSULTATION: 02/26/2021 ATTENDING PHYSICIAN: Judd Tong MD CONSULTING PHYSICIAN: Alex Manriquez MD REASON FOR CONSULTATION: The patient is seen in pulmonary consultation at the request of Dr. Tong for hypoxemia. HISTORY OF PRESENT ILLNESS: The patient is a 50-year-old female with a history of cerebral palsy, does not wear oxygen at home. She utilizes an electric wheelchair to get around. She was transferring from the bed to the wheelchair. She fell and suffered a left intertrochanteric femur fracture. She was noted to be hypoxemic. I was asked to see her in consultation. She has no prior history of tobacco. She does have a history of asthma. She utilizes a p.r.n. nebulized treatment at home along with Advair. She denies productive cough. PAST MEDICAL HISTORY: Cerebral palsy, adult onset asthma, depression, diabetes, obstructive sleep apnea. PAST SURGICAL HISTORY: None. ALLERGIES: BETA BLOCKERS, SULFA. FAMILY HISTORY: Diabetes. SOCIAL HISTORY: She denies any tobacco or alcohol. She works as a social media marketing specialist. MEDICATIONS: List reviewed. REVIEW OF SYSTEMS: As indicated above, otherwise other systems were reviewed and negative. PHYSICAL EXAMINATION: GENERAL: The patient was in no respiratory distress. She was on 2 liters of oxygen supplementation, saturation greater than 92%. LUNGS: Anteriorly were clear. CARDIOVASCULAR: Regular rate and rhythm with S1, S2, no S3. ABDOMEN: Soft. EXTREMITIES: Evidence of cerebral palsy. NEUROLOGIC: The patient was awake, alert, following commands. A detailed neuro exam was not performed. LABORATORY DATA: Reviewed. SARS-CoV-2 was negative. White count was negative. Chest x-ray revealed no acute cardiopulmonary process. IMPRESSION: 1. Hypoxemia related to poor inspiratory effort. 2. The patient with morbid obesity, body mass index of 57.4. 3. She does have a history of asthma. Her asthma appears to be compensated. I think she is hypoventilating a bit. PLAN: 1. Aggressive pulmonary hygiene. 2. Incentive spirometry. 3. Continue oxygen supplementation. 4. DVT prophylaxis. 5. Follow orthopedic input. LETY/WILIAM DR: Dustin TID: [id number]
== END 2021-02-26 16:30 | disposition short-term general hospital (02) | DRG 522 ==
LOC: ER 14:21 → ED HOLD 16:14 → 4 NORTH 02-25 11:20
PROVIDERS: ADMIT Internal Medicine; ATTEND Internal Medicine
PROC: 0SRB0JZ Replacement of Left Hip Joint with Synthetic Substitute, Open Approach (ICD-10-PCS; principal; 2021-02-25 13:30)
DX: S72.142A Displaced intertrochanteric fracture of left femur, initial encounter for closed fracture (principal); Z68.43 Body mass index [BMI] 50.0-59.9, adult; G80.9 Cerebral palsy, unspecified; E11.9 Type 2 diabetes mellitus without complications; E66.01 Morbid (severe) obesity due to excess calories; I10 Essential (primary) hypertension; J45.909 Unspecified asthma, uncomplicated; N32.81 Overactive bladder; R09.02 Hypoxemia; Z83.3 Family history of diabetes mellitus; F32.9 Major depressive disorder, single episode, unspecified; F41.9 Anxiety disorder, unspecified; Z88.2 Allergy status to sulfonamides; Z88.8 Allergy status to other drugs, medicaments and biological substances; Z20.822 Contact with and (suspected) exposure to COVID-19; W18.39XA Other fall on same level, initial encounter; Y93.89 Activity, other specified; Y92.89 Other specified places as the place of occurrence of the external cause; Y99.8 Other external cause status
CPT/HCPCS: 36415; 71045; 73502; 73552; 80048; 82962; 85025; 87426; 93005; 94640; 94760; A4930; A6223; A6253; A6402; A6454; J0690; J1100; J1170; J2270; J2370; J2405; J3010; J7060; U0003; U0005; 99285-25; G0378; J7613